=== PATIENT | male | born 1960 | race Caucasian/White ===

== ENCOUNTER 2017-04-08 18:38 | Emergency (ER) | payer OTHER ==
--- NOTE | 2017-04-08 20:32 | DIAGNOSTIC IMAGING REPORT ---
PROCEDURE: XR KNEE 4 VIEWS - RIGHT INDICATION: TRAUMA/INJURY TECHNIQUE: Four views. COMPARISON: None. FINDINGS: Moderate degenerative change of the right patellofemoral joint with peripheral osteophytes. There mild degenerate change in medial lateral compartments. There are multiple osseous densities in the suprapatellar region associated with a moderate effusion (may represent loose bodies). IMPRESSION: 1. Moderate degenerative change of the right knee (primarily affecting the patellofemoral joint). 2. Moderate effusion with multiple osseous densities (3-6 mm) suggestive of loose bodies. 3. No evidence of acute fracture.
--- NOTE | 2017-04-08 21:04 | ED ORDER SUMMARY ---
..... Patient: ROSA GILMAN OrderSheet [facility] VisitID: [id number] [address] [place] [address] 56y, M Registration Date/Time: 04/08/2017 ORDER SHEET Weight: 121.1 kg (stated) Allergies: No Known Drug Allergy GENERAL ORDERS: Knee 4V Right Urgent (19:10 04/08/2017 HBivens A.R.N.P.) (Ack 19:12 AMcQuoid ER Tech1) (19:27 AMcQuoid ER Tech1) Travis Wrap (21:03 04/08/2017 HBivens A.R.N.P.) (21:30 Raffaele Riggisn.N.) MEDICATION ORDERS: Hydrocodone-APAP PO 5/325 mg (NOW, HIGH ALERT MEDICATION) (19:57 04/08/2017 HBivens A.R.N.P.) (Ack 20:16 Shanel R.N.) (20:19 Shanel R.N.) IV FLUIDS: ORDER SHEET NOTES: [Electronically signed by Tiara CortesR.N.PWendy (22:56 04/08/2017)] [Electronically signed by Brielle Cottrell R.N. (16:36 04/22/2017)] [Electronically locked/signed by Brielle Cottrell R.N. (16:36 04/22/2017)]
--- NOTE | 2017-04-08 21:04 | ED ORDER SUMMARY ---
..... Patient: ROSA GILMAN OrderSheet [facility] VisitID: [id number] [address] [place] [address] 56y, M Registration Date/Time: 04/08/2017 ORDER SHEET Weight: 121.1 kg (stated) Allergies: No Known Drug Allergy GENERAL ORDERS: Knee 4V Right Urgent (19:10 04/08/2017 HBivens A.R.N.P.) (Ack 19:12 AMcQuoid ER Tech1) (19:27 AMcQuoid ER Tech1) Travis Wrap (21:03 04/08/2017 HBivens A.R.N.P.) (21:30 Raffaele Riggins.N.) MEDICATION ORDERS: Hydrocodone-APAP PO 5/325 mg (NOW, HIGH ALERT MEDICATION) (19:57 04/08/2017 HBivens A.R.N.P.) (Ack 20:16 Shanel R.N.) (20:19 Shanel R.N.) IV FLUIDS: ORDER SHEET NOTES: [Electronically signed by Tiara CortesR.N.PWendy (22:56 04/08/2017)] [Electronically signed by Brielle Cottrell R.N. (16:36 04/22/2017)] [Electronically locked/signed by Brielle Cottrell R.N. (16:36 04/22/2017)]
--- NOTE | 2017-04-08 21:04 | ED NURSING NOTES ---
Clinical Report - Nurses [facility] [address] [place] [address] 04/08/2017 18:40 Patient: ROSA GILMAN TRIAGE Triage time 18:43. Acuity: LEVEL 3. Chief Complaint: INJURY TO RIGHT KNEE. INJURY TO THE RIGHT KNEE. Alert. No acute distress. AGATHA COMA SCORE: Agatha Coma Scale: 15- eyes open spontaneously (4); best verbal response- oriented x 4 (5); best motor response- obeys commands (6). --18:52 Alley Bernal R.N. 18:43 04/08/17. BP: 138/81. HR: 79. RR: 20. O2 saturation: 97%. Temp: 98.2 F. Pain level now: 07/09. --18:52 Alley Bernal R.N. Weight: 121.1 kg stated. Height/Length: 70 inches Per Patient. BMI: 38.3. --18:51 Alley Bernal R.N. Medications Lisinopril Oral 20 mg, daily. --18:48 Alley Bernal R.N. Hctz day . --18:48 Alley Bernal R.N. Medication/allergy information source: the patient. --18:52 Alley Bernal R.N. Allergies No Known Drug Allergy. --18:48 Alley Bernal R.N. History Arrived by private vehicle. Historian: patient. Accompanied by family. Primary physician ( med clinic). This occurred just prior to arrival. Occurred at home. ( Accident with a riding lawnmower, It tipped, and twisted, throwing him off and twisted rt knee.). He has had trouble walking. The patient has been unable to stand. Treatment STORE SALES CONSULTANT: EMS treatment STORE SALES CONSULTANT verbally communicated. See EMS report. BP: 168 / 98 sitting. HR: 76. RR: 20. O2 saturation: 97 room air. Upon arrival patient awake. PAST MEDICAL HX: Hypertension. Tetanus status: up-to-date. SURGERY HX: Left upper extremity fracture repair, lower extremity fracture repair and knee surgery. Right lower extremity fracture repair and hip surgery. Tonsillectomy. ( lt index finger). SOCIAL HX: Light tobacco smoker (cigarette)- less than 1/2 a pack per day. Occasional alcohol use. No drug use. FALL RISK ASSESSMENT: Fall risk assessment completed. No fall risk identified. NUTRITIONAL RISK ASSESSMENT: The nutritional risk assessment revealed no deficiencies. FUNCTIONAL ASSESSMENT: Functional assessment: no impairments noted. LEARNING NEEDS ASSESSMENT: The learning needs assessment revealed no barriers. SKIN INTEGRITY ASSESSMENT: Skin integrity risk assessment completed. No skin integrity risk identified. AGATHA COMA SCORE: Agatha Coma Scale: 15- eyes open spontaneously (4); best verbal response- oriented x 4 (5); best motor response- obeys commands (6). --18:52 Alley Bernal R.N. Interventions ID band on patient. To room. --18:52 Alley Bernal R.N. PHYSICAL ASSESSMENT To room via stretcher. GENERAL / NEURO / PSYCH: Appears in pain and anxious. EXTREMITIES: Limited ROM present. Capillary refill is less than 2 seconds in the extremities. Extremity pulses are within normal limits. He was unable to bear weight. Right knee: tenderness and swelling. Limited ROM. SKIN: Skin intact. Skin is warm and dry. --18:53 Alley Bernal R.N. NURSING PROGRESS NOTES Two patient identifiers checked. Call light placed in reach. Side rails up x 1. Bed placed in lowest position. Brakes of bed on. Patient ready for evaluation. --18:53 Alley Bernal R.N. 20:18 04/08/2017 Hydrocodone-APAP (Hydrocodone-Acetaminophen) PO 5/325 mg Tablets 1 tab given. Allergies verified, confirmed 5 rights and sedative warning given to the patient. --20:19 Trudy Bhagat R.N. 5 inch chito bandage applied to right knee by nurse; distal pulses intact, sensation intact and motor function within normal limits. --21:32 Brielle Cottrell R.N. DISPOSITION / DISCHARGE No learning barriers present. Discharge instructions provided and reviewed with the patient. Reviewed medication(s) side effects information. Prescription(s) given to the patient. Patient verbalized understanding. Written instructions provided in Armenian. The patient was discharged by the nurse practitioner. He was discharged home and accompanied by spouse, parent and family. He left the Emergency Department ambulatory and via private vehicle. Family member driving. ( ice bags given to pt filled for home use, pt and family gone over chito wrap and monitoring for pulses , pt reports pain "Oh it's way down like a 1 or 2"). --21:33 Brielle Cottrell R.N. 21:17 04/08/17. BP: 132/79. HR: 82. RR: 17. O2 saturation: 98%. Temp: 98.3 F. Pain level now: 12/09. --21:33 Brielle Cottrell R.N. Locked/Released at 04/22/2017 16:36 by Brielle Cottrell R.N.
--- NOTE | 2017-04-08 21:04 | ED NURSING NOTES ---
Clinical Report - Nurses [facility] [address] [place] [address] 04/08/2017 18:40 Patient: ROSA GILMAN TRIAGE Triage time 18:43. Acuity: LEVEL 3. Chief Complaint: INJURY TO RIGHT KNEE. INJURY TO THE RIGHT KNEE. Alert. No acute distress. AGATHA COMA SCORE: Agatha Coma Scale: 15- eyes open spontaneously (4); best verbal response- oriented x 4 (5); best motor response- obeys commands (6). --18:52 Alley Bernal R.N. 18:43 04/08/17. BP: 138/81. HR: 79. RR: 20. O2 saturation: 97%. Temp: 98.2 F. Pain level now: 07/09. --18:52 Alley Bernal R.N. Weight: 121.1 kg stated. Height/Length: 70 inches Per Patient. BMI: 38.3. --18:51 Alley Bernal R.N. Medications Lisinopril Oral 20 mg, daily. --18:48 Alley Bernal R.N. Hctz day . --18:48 Alley Bernal R.N. Medication/allergy information source: the patient. --18:52 Alley Bernal R.N. Allergies No Known Drug Allergy. --18:48 Alley Bernal R.N. History Arrived by private vehicle. Historian: patient. Accompanied by family. Primary physician ( med clinic). This occurred just prior to arrival. Occurred at home. ( Accident with a riding lawnmower, It tipped, and twisted, throwing him off and twisted rt knee.). He has had trouble walking. The patient has been unable to stand. Treatment CAT SKINNER: EMS treatment CAT SKINNER verbally communicated. See EMS report. BP: 168 / 98 sitting. HR: 76. RR: 20. O2 saturation: 97 room air. Upon arrival patient awake. PAST MEDICAL HX: Hypertension. Tetanus status: up-to-date. SURGERY HX: Left upper extremity fracture repair, lower extremity fracture repair and knee surgery. Right lower extremity fracture repair and hip surgery. Tonsillectomy. ( lt index finger). SOCIAL HX: Light tobacco smoker (cigarette)- less than 1/2 a pack per day. Occasional alcohol use. No drug use. FALL RISK ASSESSMENT: Fall risk assessment completed. No fall risk identified. NUTRITIONAL RISK ASSESSMENT: The nutritional risk assessment revealed no deficiencies. FUNCTIONAL ASSESSMENT: Functional assessment: no impairments noted. LEARNING NEEDS ASSESSMENT: The learning needs assessment revealed no barriers. SKIN INTEGRITY ASSESSMENT: Skin integrity risk assessment completed. No skin integrity risk identified. AGATHA COMA SCORE: Agatha Coma Scale: 15- eyes open spontaneously (4); best verbal response- oriented x 4 (5); best motor response- obeys commands (6). --18:52 Alley Bernal R.N. Interventions ID band on patient. To room. --18:52 Alley Bernal R.N. PHYSICAL ASSESSMENT To room via stretcher. GENERAL / NEURO / PSYCH: Appears in pain and anxious. EXTREMITIES: Limited ROM present. Capillary refill is less than 2 seconds in the extremities. Extremity pulses are within normal limits. He was unable to bear weight. Right knee: tenderness and swelling. Limited ROM. SKIN: Skin intact. Skin is warm and dry. --18:53 Alley Bernal R.N. NURSING PROGRESS NOTES Two patient identifiers checked. Call light placed in reach. Side rails up x 1. Bed placed in lowest position. Brakes of bed on. Patient ready for evaluation. --18:53 Alley Bernal R.N. 20:18 04/08/2017 Hydrocodone-APAP (Hydrocodone-Acetaminophen) PO 5/325 mg Tablets 1 tab given. Allergies verified, confirmed 5 rights and sedative warning given to the patient. --20:19 Trudy Bhagat R.N. 5 inch chito bandage applied to right knee by nurse; distal pulses intact, sensation intact and motor function within normal limits. --21:32 Brielle Cottrell R.N. DISPOSITION / DISCHARGE No learning barriers present. Discharge instructions provided and reviewed with the patient. Reviewed medication(s) side effects information. Prescription(s) given to the patient. Patient verbalized understanding. Written instructions provided in Telugu. The patient was discharged by the nurse practitioner. He was discharged home and accompanied by spouse, parent and family. He left the Emergency Department ambulatory and via private vehicle. Family member driving. ( ice bags given to pt filled for home use, pt and family gone over chito wrap and monitoring for pulses , pt reports pain "Oh it's way down like a 1 or 2"). --21:33 Brielle Cottrell R.N. 21:17 04/08/17. BP: 132/79. HR: 82. RR: 17. O2 saturation: 98%. Temp: 98.3 F. Pain level now: 12/09. --21:33 Brielle Cottrell R.N. Locked/Released at 04/22/2017 16:36 by Brielle Cottrell R.N.
--- NOTE | 2017-04-08 21:04 | ED CLINICAL REPORT ---
Clinical Report - Physicians/Mid Levels [facility] [address] [place] [address] 04/08/2017 18:40 Patient: ROSA GILMAN Time Seen: 1900; initial patient contact, initial documentation, patient care assumed. Arrived- By ambulance. Historian- patient. HISTORY OF PRESENT ILLNESS Chief Complaint: Injury to right knee. The injury happened just prior to arrival. The patient sustained a direct blow. Occurred at home. ( riding lawnmower started to tip over going uphill and it went sideways hitting him in the knee). Patient is experiencing severe pain. Patient denies injury to the head or neck. No other injury. (he thinks knee cap is dislocated). REVIEW OF SYSTEMS The patient complains of pain on weight bearing. He has had swelling. No tingling, weakness, numbness, suspected foreign body or skin laceration. All systems otherwise negative, except as recorded above. PAST HISTORY See nurses notes. The patient has had a prior injury to the same area (ligamentous injury) (acl repair). Hypertension. Surgeries: Right hip surgery and knee surgery. Tonsillectomy. SOCIAL HISTORY Light tobacco smoker. Occasional alcohol use. No drug use. No recent travel. Is a local resident. FAMILY HISTORY No significant family medical history. ADDITIONAL NOTES The nursing notes have been reviewed with agreement regarding the chief complaint, HPI, ROS, PMH and patient medications and allergies. PHYSICAL EXAM Vital Signs: 04/08/2017 18:43 BP: 138/81. HR: 79. RR: 20. O2 saturation: 97%. Temp: 98.2 F. Pain level now: 8/10. Have been reviewed as normal and appear to be correct. Appearance: Alert. Oriented X3. No acute distress. Head: Head atraumatic. Eyes: Pupils equal, round and reactive to light. Eyes normal inspection. Respiratory: No respiratory distress. Skin: Skin intact. Skin warm and dry. Normal skin color. Normal skin turgor. Extremities: Right knee: mild tenderness and swelling located in the patella. Limited ROM secondary to pain (diminished flexion). Neurovascular intact distally. No ligamentous laxity present. No joint effusion. No erythema, laceration, abrasion, ecchymosis or puncture wound. No foreign body or deformity. No limited extension, external rotation or internal rotation. Lower extremity exam otherwise negative. Extremities otherwise negative. Neuro, Vascular and Tendons: Vascular status intact. Sensation intact. Motor intact. Tendon function intact. Gait: Abnormal gait. Gait not tested due to pain. Neuro: Oriented X 3. No motor deficit. No sensory deficit. Note: isolated injury to knee. LABS, X-RAYS, AND EKG X-Rays: Right knee. Rt Knee X-ray: (IMPRESSION: 1. Moderate degenerative change of the right knee (primarily affecting the patellofemoral joint). 2. Moderate effusion with multiple osseous densities (3-6 mm) suggestive of loose bodies. 3. No evidence of acute fracture. Electronically Final signed by:Ian Nelson MD 04/08/2017 8:29:10 PM). The X-rays were interpreted by the radiologist and contemporaneously by me. PROGRESS AND PROCEDURES Patient counseled in person regarding the patient's stable condition, test results and diagnosis. 20:43. Differential Diagnosis: Other possible considerations: knee sprain, dislocation, fx. Above considerations are based on history, physical exam and X-Ray data. Differential diagnosis was discussed with patient. Disposition: Discharged home in good and improved condition (21:03). Condition: good and stable. CLINICAL IMPRESSION Single contusion to the right knee.No hematoma or skin abrasion. INSTRUCTIONS Apply ice for 20 minutes four times a day for one days until better. Don't apply ice directly to skin. Wear elastic wrap (Travis wrap) as directed for one weeks until better. Elevate affected areas above chest level for two days until better. Warnings: GENERAL WARNINGS: Return or contact your physician immediately if your condition worsens or changes unexpectedly, if not improving as expected, or if other problems arise. Specifically return if problem worsens. Prescription Medications: [place] 5 mg / 325 mg tablets: take 1 orally every 6 hours as needed for pain. Dispense five (5). No refill. Motrin 800 mg tablets: take 1 tablet orally every 8 hours as needed for pain. Dispense thirty (30). No refills. Substitution is permissible. Follow-up: Follow up with your doctor in about one week as needed. Call for an appointment. Summary of care provided to patient. Understanding of the discharge instructions verbalized by patient. (Electronically signed by Tiara Cortes A.R.N.P. 04/08/2017 22:56)
--- NOTE | 2017-04-22 16:36 | ED MED RECONCILIATION SUMMARY ---
Patient: ROSA GILMAN Medication Reconciliation Report [facility] VisitID: [id number] [address] [place] [address] 56y, M Registration Date/Time: 04/08/2017 Weight: 121.1 kg Height/Length: 70 in. BMI: 38.3 ALLERGIES: No Known Drug Allergy The patient's Home Medications are listed below: THE FOLLOWING MEDICATIONS NEED TO BE RECONCILED: Hctz day Lisinopril Oral 20 mg, daily The source(s) of the original Home Medication information: patient The following Medications were given to the patient in the Emergency Department: Hydrocodone-APAP [PO] PO 1 tab, administered: 04/08/2017 8:18:00 PM The following Medications were prescribed to the patient: [place] 5 mg / 325 mg tablets: take 1 orally every 6 hours as needed for pain. Dispense five (5). No refill. -- Tiara Cortes, BernadetteR.N.P. Motrin 800 mg tablets: take 1 tablet orally every 8 hours as needed for pain. Dispense thirty (30). No refills. Substitution is permissible. -- Tiara Cortes A.R.N.P.
--- NOTE | 2017-04-22 16:36 | ED MAR SUMMARY ---
..... Medication Administration Record [facility] [address] [address] Patient: ROSA GILMAN Visit ID: [id number] 56y, M Weight: 121.1 kg Height/Length: 70 in BMI: 38.3 ALLERGIES: No Known Drug Allergy Given 20:18 04/08/2017 Trudy Bhagat R.N. Medication Administered: HYDROCODONE-APAP [PO] (HYDROCODONE-ACETAMINOPHEN), Dose: 1 tab 5/325 mg Tablets PO. Medication Ordered: Hydrocodone-APAP PO 5/325 mg (NOW, HIGH ALERT MEDICATION).
--- NOTE | 2017-04-22 16:36 | ED MED RECONCILIATION SUMMARY ---
Patient: ROSA GILMAN Medication Reconciliation Report [facility] VisitID: [id number] [address] [place] [address] 56y, M Registration Date/Time: 04/08/2017 Weight: 121.1 kg Height/Length: 70 in. BMI: 38.3 ALLERGIES: No Known Drug Allergy The patient's Home Medications are listed below: THE FOLLOWING MEDICATIONS NEED TO BE RECONCILED: Hctz day Lisinopril Oral 20 mg, daily The source(s) of the original Home Medication information: patient The following Medications were given to the patient in the Emergency Department: Hydrocodone-APAP [PO] PO 1 tab, administered: 04/08/2017 8:18:00 PM The following Medications were prescribed to the patient: [place] 5 mg / 325 mg tablets: take 1 orally every 6 hours as needed for pain. Dispense five (5). No refill. -- Tiara Cortes, BernadetteR.N.P. Motrin 800 mg tablets: take 1 tablet orally every 8 hours as needed for pain. Dispense thirty (30). No refills. Substitution is permissible. -- Tiara Cortes A.R.N.P.
--- NOTE | 2017-04-22 16:36 | ED MAR SUMMARY ---
..... Medication Administration Record [facility] [address] [place] [address] Patient: ROSA GILMAN Visit ID: [id number] 56y, M Weight: 121.1 kg Height/Length: 70 in BMI: 38.3 ALLERGIES: No Known Drug Allergy Given 20:18 04/08/2017 Trudy Bhagat R.N. Medication Administered: HYDROCODONE-APAP [PO] (HYDROCODONE-ACETAMINOPHEN), Dose: 1 tab 5/325 mg Tablets PO. Medication Ordered: Hydrocodone-APAP PO 5/325 mg (NOW, HIGH ALERT MEDICATION).
--- NOTE | 2017-04-22 16:36 | ED DISCHARGE INSTRUCTIONS ---
Patient: ROSA GILMAN General Instructions Formerly [facility] VisitID: [id number] [place] [address] 56y, M Registration Date/Time: 04/08/2017 Single contusion to the right knee.No hematoma or skin abrasion. INSTRUCTIONS Apply ice for 20 minutes four times a day for one days until better. Don't apply ice directly to skin. Wear elastic wrap (Travis wrap) as directed for one weeks until better. Elevate affected areas above chest level for two days until better. Warnings: GENERAL WARNINGS: Return or contact your physician immediately if your condition worsens or changes unexpectedly, if not improving as expected, or if other problems arise. Specifically return if problem worsens. Prescription Medications: [place] 5 mg / 325 mg tablets: take 1 orally every 6 hours as needed for pain. Dispense five (5). No refill. Motrin 800 mg tablets: take 1 tablet orally every 8 hours as needed for pain. Dispense thirty (30). No refills. Substitution is permissible. Follow-up: Follow up with your doctor in about one week as needed. Call for an appointment. Summary of care provided to patient. Understanding of the discharge instructions verbalized by patient. ADDITIONAL INFORMATION Contusion:Lower Extremity You have a CONTUSION of your LOWER extremity (leg, knee, ankle, foot, or toes). This causes local pain, swelling and sometimes bruising. There are no broken bones. This injury may take from a few days to a few weeks to heal. Home Care: 1) Keep your leg elevated to reduce pain and swelling. When sleeping, place a pillow under the injured leg. When sitting, support the injured leg so it is level with your waist. This is very important during the first 48 hours. 2) If CRUTCHES have been advised, do not bear full weight on the injured leg until you can do so without pain. You may return to sports when you are able to hop and run on the injured leg without pain. 3) Apply an ice pack (ice cubes in a plastic bag, wrapped in a towel) over the injured area for 20 minutes every 1-2 hours the first day for pain relief. Continue this 3-4 times a day until the pain and swelling goes away. 4) You may use acetaminophen (Tylenol) or ibuprofen (Motrin, Advil) to control pain, unless another pain medicine was prescribed. [ NOTE : If you have chronic liver or kidney disease or ever had a stomach ulcer or GI bleeding, talk with your doctor before using these medicines.] Follow Up with your doctor or this facility if you are not starting to improve within the next THREE days. [NOTE: If X-rays were taken, they will be reviewed by a radiologist. You will be notified of any new findings that may affect your care.] Get Prompt Medical Attention if any of the following occur: -- Pain or swelling increases -- Toes become cold, blue, numb or tingly -- Redness, warmth or drainage from the skin Travis Wrap An "Travis Bandage" refers to any elastic bandage wrap (2-6" wide). This is used to apply support and compression to an arm or leg. It will help prevent or reduce swelling also. When applying the bandage, it should not be stretched too tightly. A tight Travis Wrap will reduce circulation and cause tingling or numbness in the hand or foot. It may increase the pain under the bandage. If you get these symptoms, remove the wrap and rest the limb. Symptoms should go away within 1-2 hours. Once symptoms go away, reapply the bandage with less stretch. If symptoms do not go away after 1-2 hours with the bandage off, call your doctor or return to this facility promptly. Hydrocodone Bitartrate, Acetaminophen Oral tablet What is this medicine? ACETAMINOPHEN; HYDROCODONE (a set a DAVID johnathan fen; vinny droe KOE done) is a pain reliever. It is used to treat mild to moderate pain. How should I use this medicine? Take this medicine by mouth. Swallow it with a full glass of water. Follow the directions on the prescription label. If the medicine upsets your stomach, take the medicine with food or milk. Do not take more than you are told to take. Talk to your jacquard plate maker regarding the use of this medicine in children. This medicine is not approved for use in children. What side effects may I notice from receiving this medicine? Side effects that you should report to your doctor or health spiritual care coordinator as soon as possible: allergic reactions like skin rash, itching or hives, swelling of the face, lips, or tongue breathing problems confusion feeling faint or lightheaded, falls stomach pain yellowing of the eyes or skin Side effects that usually do not require medical attention (report to your doctor or health spiritual care coordinator if they continue or are bothersome): nausea, vomiting stomach upset What may interact with this medicine? alcohol antihistamines isoniazid medicines for depression, anxiety, or psychotic disturbances medicines for sleep muscle relaxants naltrexone narcotic medicines (opiates) for pain phenobarbital ritonavir tramadol What if I miss a dose? If you miss a dose, take it as soon as you can. If it is almost time for your next dose, take only that dose. Do not take double or extra doses. Where should I keep my medicine? Keep out of the reach of children. This medicine can be abused. Keep your medicine in a safe place to protect it from theft. Do not share this medicine with anyone. Selling or giving away this medicine is dangerous and against the law. Store at room temperature between 15 and 30 degrees C (59 and 86 degrees F). Protect from light. Keep container tightly closed. Throw away any unused medicine after the expiration date. Discard unused medicine and used packaging carefully. Pets and children can be harmed if they find used or lost packages. What should I tell my health care provider before I take this medicine? They need to know if you have any of these conditions: brain tumor Crohn's disease, inflammatory bowel disease, or ulcerative colitis drink more than 3 alcohol-containing drinks per day drug abuse or addiction head injury heart or circulation problems kidney disease or problems going to the bathroom liver disease lung disease, asthma, or breathing problems an unusual or allergic reaction to acetaminophen, hydrocodone, other opioid analgesics, other medicines, foods, dyes, or preservatives or trying to get breast-feeding What should I watch for while using this medicine? Tell your doctor or health spiritual care coordinator if your pain does not go away, if it gets worse, or if you have new or a different type of pain. You may develop tolerance to the medicine. Tolerance means that you will need a higher dose of the medicine for pain relief. Tolerance is normal and is expected if you take the medicine for a long time. Do not suddenly stop taking your medicine because you may develop a severe reaction. Your body becomes used to the medicine. This does NOT mean you are addicted. Addiction is a behavior related to getting and using a drug for a non-medical reason. If you have pain, you have a medical reason to take pain medicine. Your doctor will tell you how much medicine to take. If your doctor wants you to stop the medicine, the dose will be slowly lowered over time to avoid any side effects. You may get drowsy or dizzy when you first start taking the medicine or change doses. Do not drive, use machinery, or do anything that may be dangerous until you know how the medicine affects you. Stand or sit up slowly. There are different types of narcotic medicines (opiates) for pain. If you take more than one type at the same time, you may have more side effects. Give your health care provider a list of all medicines you use. Your doctor will tell you how much medicine to take. Do not take more medicine than directed. Call emergency for help if you have problems breathing. The medicine will cause constipation. Try to have a bowel movement at least every 2 to 3 days. If you do not have a bowel movement for 3 days, call your doctor or health spiritual care coordinator. Too much acetaminophen can be very dangerous. Do not take Tylenol (acetaminophen) or medicines that contain acetaminophen with this medicine. Many non-prescription medicines contain acetaminophen. Always read the labels carefully. Ibuprofen Oral tablet What is this medicine? IBUPROFEN (eye BYOO proe fen) is a non-steroidal anti-inflammatory drug (NSAID). It is used for dental pain, fever, headaches or migraines, osteoarthritis, rheumatoid arthritis, or painful monthly periods. It can also relieve minor aches and pains caused by a cold, flu, or sore throat. How should I use this medicine? Take this medicine by mouth with a glass of water. Follow the directions on the prescription label. Take this medicine with food if your stomach gets upset. Try to not lie down for at least 10 minutes after you take the medicine. Take your medicine at regular intervals. Do not take your medicine more often than directed. A special MedGuide will be given to you by the pharmacist with each prescription and refill. Be sure to read this information carefully each time. Talk to your jacquard plate maker regarding the use of this medicine in children. Special care may be needed. What side effects may I notice from receiving this medicine? Side effects that you should report to your doctor or health spiritual care coordinator as soon as possible: allergic reactions like skin rash, itching or hives, swelling of the face, lips, or tongue black or bloody stools, blood in the urine or in vomit breathing problems changes in vision chest pain general ill feeling or flu-like symptoms nausea or vomiting redness, blistering, peeling or loosening of the skin, including inside the mouth slurred speech or weakness on one side of the body stomach pain unexplained weight gain or swelling unusually weak or tired yellowing of eyes or skin Side effects that usually do not require medical attention (report to your doctor or health spiritual care coordinator if they continue or are bothersome): constipation or diarrhea dizziness gas or heartburn stomach upset What may interact with this medicine? Do not take this medicine with any of the following medications: cidofovir ketorolac methotrexate pemetrexed This medicine may also interact with the following medications: alcohol aspirin diuretics lithium other drugs for inflammation like prednisone warfarin What if I miss a dose? If you miss a dose, take it as soon as you can. If it is almost time for your next dose, take only that dose. Do not take double or extra doses. Where should I keep my medicine? Keep out of the reach of children. Store at room temperature between 15 and 30 degrees C (59 and 86 degrees F). Keep container tightly closed. Throw away any unused medicine after the expiration date. What should I tell my health care provider before I take this medicine? They need to know if you have any of these conditions: asthma cigarette smoker drink more than 3 alcohol containing drinks a day heart disease or circulation problems such as heart failure or leg edema (fluid retention) high blood pressure kidney disease liver disease stomach bleeding or ulcers an unusual or allergic reaction to ibuprofen, aspirin, other NSAIDS, other medicines, foods, dyes, or preservatives or trying to get breast-feeding What should I watch for while using this medicine? Tell your doctor or healthcare professional if your symptoms do not start to get better or if they get worse. This medicine does not prevent heart attack or stroke. In fact, this medicine may increase the chance of a heart attack or stroke. The chance may increase with longer use of this medicine and in people who have heart disease. If you take aspirin to prevent heart attack or stroke, talk with your doctor or health spiritual care coordinator. Do not take other medicines that contain aspirin, ibuprofen, or naproxen with this medicine. Side effects such as stomach upset, nausea, or ulcers may be more likely to occur. Many medicines available without a prescription should not be taken with this medicine. This medicine can cause ulcers and bleeding in the stomach and intestines at any time during treatment. Ulcers and bleeding can happen without warning symptoms and can cause . To reduce your risk, do not smoke cigarettes or drink alcohol while you are taking this medicine. You may get drowsy or dizzy. Do not drive, use machinery, or do anything that needs mental alertness until you know how this medicine affects you. Do not stand or sit up quickly, especially if you are an older patient. This reduces the risk of dizzy or fainting spells. This medicine can cause you to bleed more easily. Try to avoid damage to your teeth and gums when you brush or floss your teeth. You have been given the following additional information: Contusion, Lower Extremity Travis Wrap Hydrocodone Bitartrate, Acetaminophen Oral tablet Ibuprofen Oral tablet (Electronically signed by Tiara Cortes A.R.N.P. 04/08/2017 22:56)
== END 2017-04-08 21:17 | disposition home or self-care (01) ==
LOC: ED SRH 18:38
DX: S80.01XA Contusion of right knee, initial encounter (principal); W22.8XXA Striking against or struck by other objects, initial encounter; Y93.89 Activity, other specified; Y92.009 Unspecified place in unspecified non-institutional (private) residence as the place of occurrence of the external cause; Y99.8 Other external cause status; F17.200 Nicotine dependence, unspecified, uncomplicated; I10 Essential (primary) hypertension